=== PATIENT | female | born 1965 ===

== ENCOUNTER 2020-06-20 06:00 | Outpatient (RCR) | payer BC, SELFPAY | END 2020-06-30 23:59 | disposition home or self-care (01) | LOC: SPT 06:00 | PROVIDERS: PCP Family Medicine; Referring Provider Nurse Practitioner Adult Health; Visit Provider Nurse Practitioner Adult Health | DX: M17.12 Unilateral primary osteoarthritis, left knee (principal) | CPT/HCPCS: 97110; 97140; 97161; 97530 ==

== ENCOUNTER 2020-07-01 06:00 | Outpatient (RCR) | payer BC, SELFPAY | END 2020-07-31 23:59 | disposition home or self-care (01) | LOC: SPT 06:00 | PROVIDERS: PCP Family Medicine; Referring Provider Nurse Practitioner Adult Health; Visit Provider Nurse Practitioner Adult Health | DX: M25.562 Pain in left knee (principal) | CPT/HCPCS: 97110; 97112 ==